=== PATIENT | female | born 1990 | race Caucasian/White ===

== ENCOUNTER 2016-05-20 11:12 | Emergency (ER) | payer MEDICAID ==
[~2016-05-20] VITALS: Ht 167.6 cm; Wt 87.1 kg
[2016-05-20 11:31] VITALS: BP 124/80
--- NOTE | 2016-05-20 11:50 | NUR ---
Patient ambulated to bed 08.
--- NOTE | 2016-05-20 11:55 | NUR ---
PATIENT PRESENTS TO ED WITH LEFT ABDOMINAL PAIN/STARTED MAY 15, S[facility]P [facility]14[facility]. PT DENIES MEDICAL HISTORY. DENIES N/V/D; SKIN IS PINK/WARM/DRY; AAOX4 WITH EVEN AND STEADY GAIT; LUNGS CLEAR BL; HR EVEN AND REGULAR; PT DENIES ANY FEVER, CP, SOB, OR COUGH AT THIS TIME; PATIENT STATES PAIN OF 7/10 AT THIS TIME; VSS; PATIENT POSITIONED FOR COMFORT; HOB ELEVATED; BEDRAILS UP X2; BED DOWN. ER MD MADE AWARE OF PT STATUS.
--- NOTE | 2016-05-20 12:13 | NUR ---
Dr. Gonzalez evaluating patient at bedside.
[2016-05-20] MEDS ORDERED: KETOROLAC 30 MG/ML VIAL IVP ONE (12:15)
[2016-05-20] MEDS ORDERED: NACL 0.9% 1,000 ML IV ONE (12:15)
[2016-05-20] MEDS ORDERED: ONDANSETRON 4 MG/2 ML VIAL IVP ONE (12:15)
--- NOTE | 2016-05-20 12:47 | NUR ---
US at bedside.
--- NOTE | 2016-05-20 14:57 | NUR ---
ENDORSED PLAN OF CARE TO EFRAÍN GIBBS. PT RESTING IN BED. NO S/S OF ACUTE DISTRESS.
[2016-05-20 15:30] VITALS: BP 120/67
== END 2016-05-20 15:30 | disposition home or self-care (01) ==
LOC: MED 11:12
DX: R10.32 Left lower quadrant pain (principal)
CPT/HCPCS: 36415; 76830; 76856; 80053; 81001; 81025; 82150; 83690; 84702; 85025; 85610; 85730; 96361; 96374; 96375; 99285; J1885; J2405; J7030; Q0092

== ENCOUNTER 2018-10-27 16:31 | Emergency (ER) | payer MEDICAID, OTHER ==
[~2018-10-27] VITALS: Ht 167.6 cm; Wt 86.2 kg
[2018-10-27 17:07] VITALS: BP 160/82
[2018-10-27] MEDS ORDERED: IBUP-2213 PO (17:12)
--- NOTE | 2018-10-27 17:12 | NUR ---
PT TO LOBBY
--- NOTE | 2018-10-27 17:43 | NUR ---
PT TO ER BED 7
--- NOTE | 2018-10-27 17:50 | NUR ---
PT PRESENTS TO ED WITH C/O LEFT SIDE FACIAL PAIN, TENDER TO PALPATION S/P FALL FROM CHAIR X 1 MONTH. PT WAS STANDING ON CHAIR, FELL ONTO WOODEN EDGE OF CHAIR. +LOC. SEEN AT , GIVEN IBUPROFEN WITH SOME RELIEF. HX: DENIES RX: IBUPROFEN
[2018-10-27 19:00] VITALS: BP 142/70
--- NOTE | 2018-10-27 19:16 | NUR ---
PT AWAKE AND ALERT. AMBULATORY. VIA WHELCHAIR TO CT.
--- NOTE | 2018-10-27 19:18 | NUR ---
PT TAKEN TO CT
--- NOTE | 2018-10-27 19:27 | NUR ---
PT BACK FROM CT
--- NOTE | 2018-10-27 19:56 | NUR ---
Dr. Lopez examining patient.
== END 2018-10-27 20:09 | disposition home or self-care (01) ==
LOC: MED 16:31
DX: S00.83XA Contusion of other part of head, initial encounter (principal); R55 Syncope and collapse; Z79.1 Long term (current) use of non-steroidal anti-inflammatories (NSAID); V49.69XA Unspecified car occupant injured in collision with other motor vehicles in traffic accident, initial encounter; Y93.89 Activity, other specified; Y92.488 Other paved roadways as the place of occurrence of the external cause; Y99.8 Other external cause status
CPT/HCPCS: 70486; 81025; 99284

== ENCOUNTER 2018-12-25 19:26 | Emergency (ER) | payer OTHER ==
[~2018-12-25] VITALS: Ht 165.1 cm; Wt 77.1 kg
[~2018-12-25 19:26] MED LIST: IBUP-2213 PO
[2018-12-25 19:35] VITALS: BP 186/81
--- NOTE | 2018-12-25 19:38 | NUR ---
PT AMBULATED TO LOBBY.
--- NOTE | 2018-12-25 21:40 | NUR ---
PT AMBULATED TO ER BED 07
--- NOTE | 2018-12-25 21:45 | NUR ---
28/F PRESENTED TO ED WITH C/O SEVERE PAIN WITH COUGH X2 WEEKS. NO SOB/DYSPNEA, NO N/V/D. VSS. NON-PRODUCTIVE COUGH. PRESSURE 8/10 PAIN. STATES DID NOT TAKE ANY MEDICATIONS TO TX SYMTOMS AT HOME. DENIES PAST MED HX, RX AND ALLERGIES.
--- NOTE | 2018-12-25 22:30 | NUR ---
PT RESTING IN BED. AWAKE ALERT. NO SIGNS OF DISTRESS. NO SOB.
[2018-12-25] MEDS ORDERED: KETOROLAC 60 MG/2 ML VIAL IM ONE (22:45)
[2018-12-25 23:15] VITALS: BP 158/72
== END 2018-12-25 23:15 | disposition home or self-care (01) ==
LOC: MED 19:26
DX: R07.89 Other chest pain (principal); Z79.899 Other long term (current) drug therapy
CPT/HCPCS: 71045; 96372; 99283; J1885